=== PATIENT | male | born 1955 | race Caucasian/White ===

== ENCOUNTER → 2021-01-27 10:13 | Outpatient (CLI) | payer OTHER, SELFPAY ==
--- NOTE | 2021-01-27 10:14 | DI.CT.S_ITS ---
PROCEDURE: CT CHEST ABD PEL W CON INDICATIONS: Hodgkin's lymphoma, right renal mass TECHNIQUE: After the administration of oral and intravenous contrast, 5 mm thick sections acquired from the lung apices to the symphysis. 5 mm coronal and sagittal reformats were performed, with additional 7 mm coronal MIP reformats through the lungs. For radiation dose reduction, the following was used: automated exposure control, adjustment of mA and/or kV according to patient size. COMPARISON: None available at time of dictation. FINDINGS: Image quality: Excellent. CHEST: Lungs and pleura: There are subpleural thick low opacities bilaterally with a basilar predominance. Mild traction bronchiectasis is present in the lung bases. No honeycombing. No suspicious nodules or mass lesions. No pleural effusions or pneumothorax. Central and peripheral airways appear patent and normal in caliber. Mediastinum: Heart size is normal. No pericardial effusion. No mediastinal or hilar adenopathy by size criteria. Thoracic aorta and central pulmonary arteries are normal in size. Esophagus is normal in caliber. There is a small hiatal hernia. Chest wall: No axillary or supraclavicular adenopathy by size criteria. Thyroid gland is heterogeneous and minutes of in size. ABDOMEN: Solid organs: Evaluation of the liver demonstrates no focal hepatic lesions. The gallbladder appears within normal limits without calcified gallstones. Biliary system is non-dilated. Pancreas enhances normally. No peripancreatic fat stranding or fluid collections. No pancreatic duct dilatation. The spleen is normal in size. No adrenal nodules. Kidneys demonstrate no hydronephrosis. There is a heterogeneous right renal mass with solid appearing enhancing components. This measures up to approximately 2.4 x 2.3 x 2.6 cm on series 2, image 84 and series 5, image 48. There is mild nonspecific perinephric stranding bilaterally. Peritoneum and bowel: Bowel loops demonstrate normal wall thickness and caliber. There is colonic diverticulosis without acute diverticulitis. No free fluid or air. Nodes and vessels: There are 2 mass lesions within the mesentery including a right paracentral mass measuring 2.3 x 2.3 cm in transverse dimension on series 2, image 86 and an additional right paracentral mass on series 2, image 81 measuring 2.2 x 1.6 cm. Multiple additional mildly prominent subcentimeter mesenteric lymph nodes are also demonstrated with [place] fat stranding of the mesentery. No retroperitoneal lymphadenopathy by size criteria. Aorta and inferior vena cava are normal in size. Miscellaneous: No ventral hernias. PELVIS: Genitourinary: Bladder wall thickness is normal. Miscellaneous: No inguinal adenopathy. There are small bilateral fat-containing inguinal hernias. Bones: No suspicious bony lesions. No vertebral body compression fractures. IMPRESSION: 1. Demonstration of 2 right paracentral mesenteric mass lesions likely representing nitish masses related to patient's history of lymphoma. No prior comparisons are available at this time. An addendum will be made to evaluate for interval change when outside studies are made available for comparison. 2. Additional mildly prominent subcentimeter mesenteric lymph nodes with hazy fat stranding of the mesentery likely represent sequelae of treated lymphoma. The imaging differential includes inflammatory process such as sclerosing mesenteritis. 3. No evidence of lymphadenopathy in the thorax. Dictated by: Dominick Rodriguez M.D. on 02/04/2021 at 10:21 Approved by: Dominick Rodriguez M.D. on 02/04/2021 at 10:34
== END ==
PROVIDERS: PCP Internal Medicine; Referring Provider Internal Medicine; Visit Provider Internal Medicine Hematology & Oncology
DX: C81.40 Lymphocyte-rich Hodgkin lymphoma, unspecified site (principal); N28.89 Other specified disorders of kidney and ureter; K40.20 Bilateral inguinal hernia, without obstruction or gangrene, not specified as recurrent
CPT/HCPCS: 71260; 74177

== ENCOUNTER → 2021-06-20 12:24 | Outpatient (CLI) | payer OTHER, SELFPAY ==
--- NOTE | 2021-06-20 12:27 | DI.CT.S_ITS ---
PROCEDURE: CT CHEST W CON INDICATIONS: hodgkin's lymphoma, lung opacities follow-up TECHNIQUE: After the administration of intravenous contrast, 5 mm thick sections acquired from the pulmonary apices to the posterior costophrenic angles. 1 mm axial lung, 5 mm thick coronal and sagittal reformats and 7 mm axial MIP were acquired. For radiation dose reduction, the following was used: automated exposure control, adjustment of mA and/or kV according to patient size. COMPARISON: [facility], CT, CT ABDOMEN WO/W CON, 06/20/2021, 12:50. [facility], [place], [place] PET CT FUSION SKULL 2 THIGH, 03/23/2021, 10:02. [facility], CT, CT CHEST ABD PEL W CON, 01/27/2021, 11:32. Outside Facility, [place], CT THORAX/ABDOMEN/PELVIS WITH CONTRAST, 09/30/2020, 11:37. Outside Facility, [place], PET SKULL BASE TO MIDTHIGH, 12/31/2019, 8:02. FINDINGS: Image quality: Excellent. Lungs and pleura: Previously identified medial left lower lobe opacity present on PET scan of 03/23/2021 is no longer visualized. Previously identified bilateral subpleural opacities with mild FDG uptake are also no longer visualized. No consolidations or effusions. Chronic interstitial changes are present. Mediastinum: Heart size is normal. No pericardial effusion. No mediastinal or hilar adenopathy by size criteria. Thoracic aorta and central pulmonary arteries are normal in size. Esophagus is normal in caliber. No hiatal hernia. Bones and chest wall: No suspicious bony lesions. No vertebral body compression fractures. No axillary or supraclavicular adenopathy by size criteria. Thyroid gland is unremarkable . Abdomen: Visualized upper abdominal solid organs appear normal. Upper abdominal bowel loops are normal in caliber. IMPRESSION: 1. Interval resolution of previously identified hypermetabolic pulmonary opacities. No new areas of opacity or mass lesion are identified. Dictated by: Thais Vivas M.D. on 06/20/2021 at 14:59 Approved by: Thais Vivas M.D. on 06/20/2021 at 15:17
--- NOTE | 2021-06-20 12:58 | DI.CT.S_ITS ---
PROCEDURE: CT ABDOMEN WO/W CON INDICATIONS: Renal mass TECHNIQUE: Optional 5 mm thick noncontrast images acquired from the diaphragm to the iliac crests. After the administration of intravenous contrast, 5 mm thick images again acquired from the diaphragm to the iliac crests in the arterial and urographic phases. 5 mm thick coronal and sagittal reformats were then acquired. For radiation dose reduction, the following was used: automated exposure control, adjustment of mA and/or kV according to patient size. COMPARISON: Outside Facility, , CT THORAX/ABDOMEN/PELVIS WITH CONTRAST, 09/30/2020, 11:37. [facility], [place], [place] PET CT FUSION SKULL 2 THIGH, 03/23/2021, 10:02. [facility], CT, CT CHEST ABD PEL W CON, 01/27/2021, 11:32. FINDINGS: Image quality: Excellent. Lung bases: Please see separately dictated same day CT chest. Mild bibasilar reticular thickening. No pleural effusion. Heart size is normal. Genitourinary: Right kidney inferior pole exophytic mass measuring 2.3 x 2.1 cm, (4/47), previously 2.4 x 2 cm on 09/30/2020. There is heterogeneous enhancement. No kidney stones. No hydronephrosis. Kidneys are normal in size. Other solid organs: Liver is normal in size and enhancement. Gallbladder is not distended. No calcified gallstones. Biliary system is non dilated. Pancreas enhances normally. Spleen is normal in size and enhancement. No adrenal nodules. Peritoneum and bowel: Unenhanced bowel loops are normal in wall thickness and caliber. Normal appendix. No free fluid or air. Nodes and vessels: Mildly enlarged mesenteric lymph nodes. For example right paramedian measuring 1.3 cm, (3/42), previously 1.5 cm. There is a hazy mesentery. Small left periaortic node within the chest measuring at 0.9 cm, (4/18), previously 0.9 cm. Aorta and inferior vena cava are normal in caliber. Moderate calcified atherosclerotic plaque. Bones: No suspicious bony lesions. Mild scoliosis. No vertebral body compression fractures. Miscellaneous: Tiny umbilical hernia. IMPRESSION: 1. Right kidney inferior pole enhancing mass measuring 2.3 cm is not significantly changed compared to September 2020. This is suspicious for renal cell carcinoma. 2. Mildly enlarged mesenteric lymph nodes are similar to the prior exam. 3. Bibasilar reticular thickening. Dictated by: Marbin Guido M.D. on 06/20/2021 at 15:17 Approved by: Marbin Guido M.D. on 06/20/2021 at 15:33
== END ==
PROVIDERS: PCP Internal Medicine; Referring Provider Urology; Visit Provider Urology
DX: C81.00 Nodular lymphocyte predominant Hodgkin lymphoma, unspecified site (principal); N28.89 Other specified disorders of kidney and ureter; R59.0 Localized enlarged lymph nodes
CPT/HCPCS: 71260; 74170

== ENCOUNTER → 2021-12-30 08:33 | Outpatient (CLI) | payer OTHER, SELFPAY ==
--- NOTE | 2021-12-30 08:34 | DI.CT.S_ITS ---
PROCEDURE: CT ABDOMEN WO/W CON INDICATIONS: Following right lower pole renal mass TECHNIQUE: Optional 5 mm thick noncontrast images acquired from the diaphragm to the iliac crests. After the administration of intravenous contrast, 5 mm thick images again acquired from the diaphragm to the iliac crests in the arterial and urographic phases. 5 mm thick coronal and sagittal reformats were then acquired. For radiation dose reduction, following was used: automated exposure control, adjustment of mA and/or kV according to patient size. COMPARISON: [place], [place], [place] PET CT FUSION SKULL 2 THIGH, 03/23/2021, 10:02. [facility], CT, CT ABDOMEN WO/W CON, 06/20/2021, 12:50. FINDINGS: Image quality: Excellent. Lung bases: Lung bases are clear. Heart size is normal. Genitourinary: A solid right lower pole renal mass, likely a renal cell carcinoma, does not appear significantly changed in size. On previous coronal image 96/13 it measured approximately 3.0 x 2.9 cm. On current coronal image 43/4 it measures approximately 2.9 x 3.0 cm. No additional renal masses. Other solid organs: Liver is normal in size and enhancement. Gallbladder is unremarkable . Biliary system is non dilated. Pancreas enhances normally. Spleen is normal in size and enhancement. No adrenal nodules. Peritoneum and bowel: Unenhanced bowel loops are normal in wall thickness and caliber. No free fluid or air. Nodes and vessels: No retroperitoneal or mesenteric adenopathy by size criteria. Aorta and inferior vena cava are normal in caliber. Bones: No suspicious bony lesions. No vertebral body compression fractures. Degenerative change with lower lumbar canal stenosis. Miscellaneous: No ventral hernias. IMPRESSION: 1. Unchanged size and appearance of right lower pole renal mass, measuring approximately 3.0 x 2.9 cm. This likely represents a renal cell carcinoma. 2. Note made of lumbar degenerative change with canal stenosis. Dictated by: Jesus Spaulding M.D. on 12/30/2021 at 10:05 Approved by: Jesus Spaulding M.D. on 12/30/2021 at 10:26
== END ==
PROVIDERS: PCP Internal Medicine; Referring Provider Urology; Visit Provider Urology
DX: N28.89 Other specified disorders of kidney and ureter (principal); M47.816 Spondylosis without myelopathy or radiculopathy, lumbar region; M48.061 Spinal stenosis, lumbar region without neurogenic claudication
CPT/HCPCS: 74170; Q9967

== ENCOUNTER → 2022-07-03 09:34 | Outpatient (CLI) | payer OTHER, SELFPAY ==
[2022-07-03 10:32] LABS: Add Manual Diff / Slide Review NO; Basophils Absolute Auto 100 /uL (0-100); Basophils Percent Auto 1.2 % (0-2); Eosinophils Absolute Auto 400 /uL (0-450); Hematocrit 40.4 % (41-53); Hemoglobin 13.6 g/dL (13.5-17.5); Lymphocytes Absolute Auto 1800 /uL (1100-4500); Lymphocytes Percent Auto 18.5 % (25-40); Mean Corpuscular HGB Conc 33.7 % (30-36); Mean Corpuscular Hemoglobin 29.9 PG (26-34); Mean Corpuscular Volume 88.8 fL (80-100); Monocytes Absolute Auto 1000 /uL (0-900); Monocytes Percent Auto 9.9 % (3-14); Neutrophils Absolute Auto 6400 /uL (1500-7000); Neutrophils Percent Auto 66.4 % (50-75); Platelet Count 206 X10^3/uL (150-400); Red Blood Cell Count 4.55 X10^6/uL (4.5-5.9); Red Cell Distribution Width 13.9 % (11.6-14.8); White Blood Cell Count 9.6 X10^3/uL (4.5-11.0)
[2022-07-03 10:48] LABS: Alanine Aminotransferase 20 IU/L (<50); Albumin 4.3 g/dL (3.5-5.0); Albumin Globulin Ratio 1.8 (1.0-2.8); Alkaline Phosphatase 135 U/L (38-126); Aspartate Aminotransferase 23 IU/L (17-59); BUN Creatinine Ratio 20.5 (6-22); Bilirubin Total 0.5 mg/dL (0.2-1.3); Blood Urea Nitrogen 30 mg/dL (9-20); Calcium 9.3 mg/dL (8.4-10.2); Carbon Dioxide 28 mmol/L (22-32); Chloride 97 mmol/L (98-107); Estimated Glomerular Filt Rate 52 mL/min (>60); Globulin 2.4 g/dL (1.7-4.1); Glucose 341 mg/dL (80-110); HEMOLYSIS < 15 (0-50); Lactate Dehydrogenase 493 U/L (313-618); Potassium 4.4 mmol/L (3.4-5.1); Sodium 136 mmol/L (137-145); Total Protein 6.7 g/dL (6.3-8.2)
[2022-07-03 10:49] LABS: BUN Creatinine Ratio 20.3 (6-22); Blood Urea Nitrogen 30 mg/dL (9-20); Calcium 9.2 mg/dL (8.4-10.2); Carbon Dioxide 28 mmol/L (22-32); Chloride 98 mmol/L (98-107); Estimated Glomerular Filt Rate 51 mL/min (>60); Glucose 343 mg/dL (80-110); HEMOLYSIS < 15 (0-50); Potassium 4.5 mmol/L (3.4-5.1); Sodium 134 mmol/L (137-145)
[2022-07-05 15:16] LABS: B2-Glycoprotein I IgA AB < 9 (0-25); B2-Glycoprotein I IgG AB < 9 (0-20); B2-Glycoprotein I IgM AB < 9 (0-32)
== END ==
PROVIDERS: Internal Medicine Hematology & Oncology; PCP Internal Medicine; Referring Provider Urology; Visit Provider Urology
DX: N28.89 Other specified disorders of kidney and ureter (principal); C81.00 Nodular lymphocyte predominant Hodgkin lymphoma, unspecified site; N18.30 Chronic kidney disease, stage 3 unspecified
CPT/HCPCS: 36415; 80048; 80053; 83615; 85025; 86146

== ENCOUNTER → 2022-07-04 09:18 | Outpatient (CLI) | payer OTHER, SELFPAY ==
--- NOTE | 2022-07-04 09:49 | DI.CT.S_ITS ---
PROCEDURE: CT ABDOMEN RENAL PROTOCOL INDICATIONS: RIGHT LOWER POLE MASS SURVEILLANCE TECHNIQUE: Optional 5 mm thick noncontrast images acquired from the diaphragm to the iliac crests. After the administration of intravenous contrast, 5 mm thick images again acquired from the diaphragm to the iliac crests in the arterial and urographic phases. 5 mm thick coronal and sagittal reformats were then acquired. For radiation dose reduction, the following was used: automated exposure control, adjustment of mA and/or kV according to patient size. COMPARISON: None. FINDINGS: Image quality: Excellent. Lung bases: Lung bases are clear. Heart size is normal. Genitourinary: Right kidney inferior pole exophytic solid mass with heterogeneous enhancement measuring 2.9 cm, (4/44), previously 2.4 cm on 09/30/2020. No additional mass or significant cyst. No kidney stones. No hydronephrosis. Other solid organs: Liver is normal in size and enhancement. Gallbladder is unremarkable. Biliary system is non dilated. Pancreas enhances normally. Spleen is normal in size and enhancement. No adrenal nodules. Peritoneum and bowel: Unenhanced bowel loops are normal in wall thickness and caliber. No free fluid or air. Nodes and vessels: Prominent right paramedian mesenteric node measuring 1.3 cm, (4/29), previously 1.6 cm on 09/30/2020. This node was FDG avid on PET/CT 12/31/2019. Aorta and inferior vena cava are normal in caliber. Bones: No suspicious bony lesions. Multilevel DDD. Scoliosis. Miscellaneous: No significant ventral hernias. IMPRESSION: 1. Right kidney inferior pole exophytic solid mass with heterogeneous enhancement measuring 2.9 cm. This is mildly increased in size compared to September 2020. This is consistent with renal cell carcinoma until proven otherwise. 2. Prominent mesenteric node is slightly decreased in size. This node was previously FDG avid on PET/CT from 2019. Dictated by: Marbin Guido M.D. on 07/04/2022 at 10:54 Approved by: Marbin Guido M.D. on 07/04/2022 at 11:12
== END ==
PROVIDERS: PCP Internal Medicine; Referring Provider Urology; Visit Provider Urology
DX: N28.89 Other specified disorders of kidney and ureter (principal); R59.0 Localized enlarged lymph nodes
CPT/HCPCS: 74170; Q9967

== ENCOUNTER → 2023-01-08 08:43 | Outpatient (CLI) | payer OTHER, SELFPAY ==
--- NOTE | 2023-01-08 08:45 | DI.CT.S_ITS ---
PROCEDURE: CT ABDOMEN RENAL PROTOCOL INDICATIONS: Right lower pole lesion TECHNIQUE: Optional 5 mm thick noncontrast images acquired from the diaphragm to the iliac crests. After the administration of intravenous contrast, 5 mm thick images again acquired from the diaphragm to the iliac crests in the arterial and urographic phases. 5 mm thick coronal and sagittal reformats were then acquired. For radiation dose reduction, the following was used: automated exposure control, adjustment of mA and/or kV according to patient size. COMPARISON: [facility], CT, CT ABDOMEN RENAL PROTOCOL, 07/04/2022, 9:36. FINDINGS: Lung bases: No pleural effusion. Genitourinary: Redemonstrated solid mass with heterogeneous internal enhancement at the inferior right kidney, 3.1 centimeters measured in the coronal plane (4/42) as on the prior exam. Previously this measured 2.9 centimeters. The mass appears to encroach on the renal sinus fat (for example series 5, image 41). No hydronephrosis bilaterally. Other solid organs: Liver is normal in size and enhancement. Gallbladder is unremarkable . Biliary system is non dilated. Pancreas enhances normally. Spleen is normal in size and enhancement. No adrenal nodules. Peritoneum and bowel: Visualized large and small bowel is non-dilated. No free air or substantial free fluid. Nodes and vessels: Scattered prominent lymph nodes present at the root of the mesentery with adjacent fat stranding as before. No definite right retroperitoneal lymphadenopathy by size criteria. Bones: Multilevel degenerative change of the visualized spine. IMPRESSION: Similar to slight increase in size of the previously demonstrated enhancing right renal mass suspicious for neoplasm such as renal cell carcinoma. Dictated by: Jose M Hudson M.D. on 01/08/2023 at 10:52 Approved by: Jose M Hudson M.D. on 01/08/2023 at 11:16
[2023-01-08 09:12] LABS: Add Manual Diff / Slide Review NO; Basophils Absolute Auto 100 /uL (0-100); Eosinophils Absolute Auto 500 /uL (0-450); Eosinophils Percent Auto 5.2 % (2-4); Hematocrit 39.6 % (41-53); Hemoglobin 13.6 g/dL (13.5-17.5); Lymphocytes Absolute Auto 2100 /uL (1100-4500); Lymphocytes Percent Auto 20.9 % (25-40); Mean Corpuscular HGB Conc 34.4 % (30-36); Mean Corpuscular Hemoglobin 30.5 PG (26-34); Mean Corpuscular Volume 88.5 fL (80-100); Monocytes Absolute Auto 1000 /uL (0-900); Neutrophils Absolute Auto 6200 /uL (1500-7000); Neutrophils Percent Auto 62.9 % (50-75); Platelet Count 215 X10^3/uL (150-400); Red Blood Cell Count 4.48 X10^6/uL (4.5-5.9); Red Cell Distribution Width 14.1 % (11.6-14.8); White Blood Cell Count 9.9 X10^3/uL (4.5-11.0)
[2023-01-08 09:25] LABS: Alanine Aminotransferase 22 IU/L (<50); Albumin 4.2 g/dL (3.5-5.0); Albumin Globulin Ratio 1.7 (1.0-2.8); Alkaline Phosphatase 88 U/L (38-126); Aspartate Aminotransferase 30 IU/L (17-59); BUN Creatinine Ratio 18.6 (6-22); Bilirubin Total 0.5 mg/dL (0.2-1.3); Blood Urea Nitrogen 26 mg/dL (9-20); Calcium 9.1 mg/dL (8.4-10.2); Carbon Dioxide 30 mmol/L (22-32); Chloride 103 mmol/L (98-107); Estimated Glomerular Filt Rate 55 mL/min (>60); Globulin 2.5 g/dL (1.7-4.1); Glucose 177 mg/dL (80-110); HEMOLYSIS 16 (0-50); Lactate Dehydrogenase 218 U/L (120-246); Sodium 139 mmol/L (137-145); Total Protein 6.7 g/dL (6.3-8.2)
[2023-01-10 13:11] LABS: Beta-2-Microglobulin 2.9 mg/L (0.6-2.4)
== END ==
PROVIDERS: Internal Medicine Hematology & Oncology; Referring Provider Urology; Visit Provider Urology
DX: N28.89 Other specified disorders of kidney and ureter (principal); C81.00 Nodular lymphocyte predominant Hodgkin lymphoma, unspecified site; N18.30 Chronic kidney disease, stage 3 unspecified
CPT/HCPCS: 36415; 74170; 80053; 82232; 83615; 85025; Q9967

== ENCOUNTER → 2023-07-09 07:59 | Outpatient (CLI) | payer OTHER, SELFPAY ==
--- NOTE | 2023-07-09 08:01 | DI.CT.S_ITS ---
PROCEDURE: CT ABDOMEN RENAL PROTOCOL INDICATIONS: right renal lesion TECHNIQUE: Optional 5 mm thick noncontrast images acquired from the diaphragm to the iliac crests. After the administration of intravenous contrast, 5 mm thick images again acquired from the diaphragm to the iliac crests in the arterial and urographic phases. 5 mm thick coronal and sagittal reformats were then acquired. For radiation dose reduction, the following was used: automated exposure control, adjustment of mA and/or kV according to patient size. COMPARISON: Outside Facility, , PET SKULL BASE TO MIDTHIGH, 12/31/2019, 8:02. [facility], [place], [place] CT FUSION SKULL 2 THIGH, 03/23/2021, 10:02. [facility], CT, CT ABDOMEN RENAL PROTOCOL, 07/04/2022, 9:36. [facility], CT, CT ABDOMEN RENAL PROTOCOL, 01/08/2023, 9:34. FINDINGS: Image quality: Excellent. Lung bases: There is left basilar bronchiectasis. No acute airspace opacity. Genitourinary: Redemonstrated solid mass with heterogenous enhancement measures 3.2 x 3.4 cm on coronal images, unchanged compared to 07/04/2022 when it measured 3.1 x 3.5 cm. No adenopathy. No renal vein thrombus. Other solid organs: Liver is normal in size and enhancement. Gallbladder is normal . Biliary system is non dilated. Pancreas enhances normally. Spleen is normal in size and enhancement. No adrenal nodules. Peritoneum and bowel: Unenhanced bowel loops are normal in wall thickness and caliber. No free fluid or air. Nodes and vessels: A right paramedian mesenteric lymph node previously described is unchanged. Otherwise no retroperitoneal or mesenteric adenopathy by size criteria. The aorta has atherosclerosis with no aneurysmal dilatation. Bones: No suspicious bony lesions. No vertebral body compression fractures. Miscellaneous: No ventral hernias. IMPRESSION: 1. Right renal inferior pole exophytic solid mass with heterogenous enhancement is unchanged in size compared to prior study as well as prior comparison on 07/04/2022. 2. A previously described prominent mesenteric node is unchanged. Dictated by: Shahriar Colin M.D. on 07/09/2023 at 11:14 Approved by: Shahriar Colin M.D. on 07/09/2023 at 11:45
== END ==
PROVIDERS: PCP Internal Medicine; Referring Provider Urology; Visit Provider Urology
DX: N28.89 Other specified disorders of kidney and ureter (principal)
CPT/HCPCS: 74170; Q9967

== ENCOUNTER → 2024-01-07 07:52 | Outpatient (CLI) | payer OTHER, SELFPAY ==
--- NOTE | 2024-01-07 07:55 | DI.CT.S_ITS ---
PROCEDURE: CT ABDOMEN RENAL PROTOCOL INDICATIONS: Follow-up right lower pole renal lesion TECHNIQUE: Optional 5 mm thick noncontrast images acquired from the diaphragm to the iliac crests. After the administration of intravenous contrast, 5 mm thick images again acquired from the diaphragm to the iliac crests in the arterial and urographic phases. 5 mm thick coronal and sagittal reformats were then acquired. For radiation dose reduction, the following was used: automated exposure control, adjustment of mA and/or kV according to patient size. COMPARISON: [facility], CT, CT ABDOMEN RENAL PROTOCOL, 07/04/2022, 9:36. [facility], CT, CT ABDOMEN RENAL PROTOCOL, 07/09/2023, 8:49. FINDINGS: Image quality: Diagnostic. Kidneys and Ureters: Right kidney inferior pole mass measuring 3.4 x 3.2 cm, (4/46), previously 3.3 x 3.2 cm, and more remotely 3.3 x 3.2 cm in 2021. Mass demonstrates heterogeneous enhancement. No additional mass. No filling defect in the proximal opacified ureters. No hydronephrosis. No kidney stones. No hydroureter. OTHER: Lower chest: Unremarkable. Liver: No solid mass. Gallbladder: No radiopaque gallstones or wall thickening. Biliary ducts: No biliary dilation. Pancreas: No ductal dilation. Spleen: Size is within normal limits. Adrenal Glands: No adrenal nodules. Stomach and Bowel: Normal colonic caliber, without significant wall thickening. Peritoneum: No abnormal intraperitoneal fluid. No free air. Ventral Wall: No hernia. Abdominal Nodes: No retroperitoneal or mesenteric adenopathy by size criteria. Small mesenteric lymph nodes are unchanged. Vessels: Aorta and inferior vena cava are normal in size. Calcified atherosclerotic plaque. Renal arteries and veins are patent. Bones: No aggressive osseous abnormality. Multilevel DDD. IMPRESSION: 1. Right kidney inferior pole mass measuring 3.4 cm is not significantly changed in size. Most consistent with renal cell carcinoma until proven otherwise. 2. No adenopathy. No suspicious osseous lesion. Dictated by: Marbin Guido M.D. on 01/07/2024 at 10:35 Approved by: Marbin Guido M.D. on 01/07/2024 at 11:28
[2024-01-07 08:20] LABS: Estimated Glomerular Filt Rate 57 mL/min (>60)
== END ==
LOC: CT 07:54
PROVIDERS: Radiology Diagnostic Radiology; PCP Internal Medicine; Referring Provider Urology; Visit Provider Urology
DX: N28.89 Other specified disorders of kidney and ureter (principal)
CPT/HCPCS: 36415; 74170; 82565; Q9967

== ENCOUNTER → 2024-05-25 13:50 | Outpatient (CLI) | payer OTHER, SELFPAY ==
[2024-05-25 14:36] LABS: Influenza A - CEPHEID Flu A NEGATIVE (NEGATIVE); Influenza B - CEPHEID Flu B NEGATIVE (NEGATIVE); Respiratory Syncytial Virus Negative (Negative)
[2024-05-25 14:37] LABS: COVID-19 CEPHEID 4-PLEX PCR POSITIVE (Negative)
== END ==
PROVIDERS: PCP Internal Medicine; Visit Provider Student in an Organized Health Care Education/Training Program
DX: Z20.822 Contact with and (suspected) exposure to COVID-19 (principal)
CPT/HCPCS: 0241U

== ENCOUNTER → 2025-01-05 07:04 | Outpatient (CLI) | payer OTHER, SELFPAY ==
--- NOTE | 2025-01-05 07:05 | DI.CT.S_ITS ---
PROCEDURE: CT ABDOMEN RENAL PROTOCOL INDICATIONS: Follow-up right renal mass TECHNIQUE: Optional 5 mm thick noncontrast images acquired from the diaphragm to the iliac crests. After the administration of intravenous contrast, 5 mm thick images again acquired from the diaphragm to the iliac crests in the arterial and urographic phases. 5 mm thick coronal and sagittal reformats were then acquired. For radiation dose reduction, the following was used: automated exposure control, adjustment of mA and/or kV according to patient size. COMPARISON: [facility], CT, CT ABDOMEN RENAL PROTOCOL, 01/07/2024, 8:59. FINDINGS: Image quality: Diagnostic. Kidneys and Ureters: Exophytic right renal mass measures 3.4 x 3.3 x 3.4 cm, previously measuring 3.4 x 3.2 x 3.1 cm using similar measuring techniques. The mass is along the posterior aspect of the right kidney, and does not contact the right renal pelvis or ureter. No evidence of local invasion of the renal fascia. No findings suspicious for renal vein invasion. OTHER: Lower chest: Peripheral reticulation of the lung bases, without honeycombing or ground-glass. Liver: No solid mass. Gallbladder: No radiopaque gallstones or wall thickening. Biliary ducts: No biliary dilation. Pancreas: No ductal dilation. Spleen: Borderline enlarged, measuring 11.4 x 12.7 x 5.0 cm (volume 369 mL). Adrenal Glands: No adrenal nodules. Stomach and Bowel: Normal colonic caliber, without significant wall thickening. Peritoneum: No abnormal intraperitoneal fluid. No free air. Central mesenteric fat stranding. Ventral Wall: No hernia. Abdominal Nodes: No retroperitoneal or mesenteric adenopathy by size criteria. Vessels: Aorta and inferior vena cava are normal in size. Bones: No aggressive osseous abnormality. IMPRESSION: Slight interval growth of the exophytic mass off the posterior margin of the right kidney measuring 3.4 x 3.3 x 3.4 cm, previously 3.4 x 3.2 x 3.1 cm. No invasion of the renal fascia. No renal vein invasion. No retroperitoneal adenopathy. Bibasilar peripheral reticulation concerning for interstitial lung disease. Correlate with PFTs. If abnormal, consider pulmonology referral as findings could represent UIP or NSIP in this age group. Borderline splenomegaly and central mesenteric fat stranding, likely related to patient's history of lymphoma. Dictated by: Alex Clemente M.D. on 01/05/2025 at 10:41 Approved by: Alex Clemente M.D. on 01/05/2025 at 10:47
[2025-01-05 07:49] LABS: Estimated Glomerular Filt Rate 53 mL/min (>60)
== END ==
PROVIDERS: PCP Internal Medicine; Referring Provider Urology; Visit Provider Urology
DX: N28.89 Other specified disorders of kidney and ureter (principal)
CPT/HCPCS: 36415; 74170; 82565; Q9967